=== PATIENT | female | born 1965 | race Two or more races ===

== ENCOUNTER 2025-06-18 08:04 | Inpatient (IN) | payer MEDICAID, OTHER ==
[~2025-06-18] VITALS: Ht 157.5 cm; Wt 74.9 kg
--- NOTE | 2025-06-18 08:09 | ED.PDOC ---
HPI Comments 60 y/o F, with PMHx of anxiety presents to the ED for CC of chest pain. Patient states, she has been experiencing substernal non-radiating chest pain following, a family argument at 0600 this morning (06/18/25). Patient relays, to be experiencing associated symptoms of nausea and vomiting following commencement of symptoms. Patient denies shortness of breath, cough, fever, palpitations, dizziness, or headache. No other symptoms or modifying factors are present at this time. Chief Complaint: Chest Pain Time Seen by MD: 08:00 Reviewed Notes: Nurses Notes, Medications, Allergies Allergies: Coded Allergies: Aspirin (Verified Allergy, Severe, 06/18/25) Information Source: Patient Mode of Arrival: Ambulatory Severity: Moderate Timing: Hours Duration: Since onset Prehospital treatment: None Location: Substernal Radiation: No Radiation Onset: At Rest Cardiac Risk Factors: None PE Risk Factors: None History of: None Modifying Factors: Nothing Associated Signs and Symptoms: N/V Past Medical History PAST MEDICAL HISTORY: Anxiety Surgical History: Denies all surgeries NUB CARD TENDER History: Denies all NUB CARD TENDER Hx Family History Family History: Unknown Social History Smoker: Non-Smoker Alcohol: Denies ETOH Use Drugs: Denies Drug Use Lives In: Home Constitutional: denies: chills, diaphoresis, fatigue, fever, malaise, sweats, weakness, others EENTM: denies: blurred vision, double vision, ear bleeding, ear discharge, ear drainage, ear pain, ear ringing, eye pain, eye redness, hearing loss, mouth pain, mouth swelling, nasal discharge, nose bleeding, nose congestion, nose pain, photophobia, tearing, throat pain, throat swelling, voice changes, others Respiratory: denies: cough, hemoptysis, orthopnea, SOB at rest, shortness of breath, SOB with excertion, stridor, wheezing, others Cardiovascular: reports: chest pain; denies: dizzy spells, diaphoresis, Dyspnea on exertion, edema, irregular heart beat, left arm pain, lightheadedness, palpitations, PND, syncope, others Gastrointestinal: reports: nausea, vomiting; denies: abdomen distended, abdominal pain, blood streaked bowels, constipated, diarrhea, dysphagia, difficulty swallowing, hematemesis, melena, poor appetite, poor fluid intake, rectal bleeding, rectal pain, others Genitourinary: denies: abnormal vagina bleeding, burning, dyspareunia, dysuria, flank pain, frequency, hematuria, incontinence, pain, , vagina discharge, urgency, others Neurological: denies: dizziness, fainting, headache, left sided numbness, left sided weakness, numbness, paresthesia, pre-existing deficit, right sided numbness, right sided weakness, seizure, speech problems, tingling, tremors, weakness, others Musculoskeletal: denies: back pain, gout, joint pain, joint swelling, muscle pain, muscle stiffness, neck pain, others Integumetry: denies: bruises, change in color, change in hair/nails, dryness, laceration, lesions, lumps, rash, wounds, others Allergic/Immunocompromised: denies: Difficulty Healing, Frequent Infections, Hives, Itching, others Hematologic/Lymphatic: denies: anemia, blood clots, easy bleeding, easy bruising, swollen glands, others Endocrine: denies: excessive hunger, excessive sweating, excessive thirst, excessive urination, flushing, intolerance to cold, intolerance to heat, unexplained weight gain, unexplained weight loss, others Psychiatric: denies: anxiety, bipolar disorder, depression, hopeless, panic disorder, schizophrenia, sleepless, suicidal, others All Other Systems: Reviewed and Negative Physical Exam General Appearance: Moderate Distress HEENT: Normal ENT Inspection, Pharynx Normal, TMs Normal Neck: Full Range of Motion, Non-Tender, Normal, Normal Inspection Respiratory: Chest Non-Tender, Lungs Clear, No Accessory Muscle Use, No Respiratory Distress, Normal Breath Sounds Cardiovascular: No Edema, No JVD, No Murmur, No Gallop, Normal Peripheral Pulses, Regular Rate/Rhythm Breast Exam: Deferred Gastrointestinal: No Organomegaly, Non Tender, No Pulsatile Mass, Normal Bowel Sounds, Soft Genitalia: Deferred Pelvic: Deferred Rectal: Deferred Extremities: No calf tenderness, Normal capillary refill, Normal inspection, Normal range of motion, Non-tender, No pedal edema Musculoskeletal : Apperance: Normal Neurologic: Alert Cerebellar Function: NOT DONE Reflexes: NOT DONE Skin: Dry, Normal Color, Warm Peripheral Pulses: 3+ Radial (R), 3+ Radial (L) Lymphatic: No Adenopathy EKG EKG : Pulse Rate (adult): 97 [place]: Normal Cardiac Rhythm: NSR Block: None Hypertrophy: LAE ST: Normal Was a procedure done? Was a procedure done?: No CP Differential Dx Differential Diagnosis: A-fib, A-Flutter, Angina, Anxiety / Panic Attack, Electrolyte Disorder Differential Diagnosis: Angina, Chest Wall Pain, Costochondritis X-Ray, Labs, Meds, VS Vital Signs Date Time Temp Pulse Resp B/P (MAP) Pulse Ox O2 Delivery O2 Flow Rate FiO2 06/18/25 08:29 97 06/18/25 08:15 97 06/18/25 08:06 98.3 111 19 145/77 100 98.3 Lab Test 06/18/25 08:22 Range/Units Troponin I High Sensitivity 7 </=34 ng/L Patient alert. Complaining of chest pain. EKG reviewed does not show any acute changes. Vitals stable. Answering questions. Cardiac marker within normal limits. Continues to have chest pain. Was given aspirin. Was given nitro. Explained to the family. Continue monitoring. Time of 1ST Reevaluation: 08:30 Reevaluation 1ST: Unchanged Patient Education/Counseling: Diagnosis, Treatment Family Education/Counseling: No Family Present SEPSIS Sepsis Screen Physician Orders Electrocardigram (06/18/25 08:15) Troponin-I Hs (06/18/25 09:15) Troponin-I Hs (06/18/25 11:15) Electrocardigram (06/18/25 09:15) Electrocardigram (06/18/25 11:15) Vital Signs Date Time Temp Pulse Resp B/P (MAP) Pulse Ox O2 Delivery O2 Flow Rate FiO2 06/18/25 08:29 97 06/18/25 08:15 97 06/18/25 08:06 98.3 111 19 145/77 100 98.3 Departure 1 Departure Time of Disposition: 09:32 Impression: Primary Impression: Chest pain of unknown etiology Disposition: ADMITTED INPATIENT Admit to: Med Surg Condition: Guarded Critical Care Note Critical Care Time?: No Stability Stability form required: No Heart Score Heart Score: Heart Score Response (Comments) Value History Slightly Suspicious 0 EKG Normal 0 Age 45-64 1 Risk Factors 1 or 2 risk factors 1 Troponin Normal limit 0 Total 2 I personally scribed for KASSIE GUZMAN MD ([email or web address]) on 06/18/25 at 08:09. Electronically submitted by Roxane Gatica ([email or web address]). I personally scribed for KASSIE GUZMAN MD ([email or web address]) on 06/18/25 at 08:16. Electronically submitted by Roxane Gatica ([email or web address]). I personally scribed for KASSIE GUZMAN MD ([email or web address]) on 06/18/25 at 08:29. Electronically submitted by Roxane Gatica ([email or web address]). KASSIE GUZMAN MD Jun 18, 2025 08:09
[2025-06-18 10:16] LABS: Potassium 3.7 mmol/L (3.5-5.1); Sodium 143 mmol/L (136-145)
[2025-06-18 10:17] LABS: Anion Gap 14 (5-15); Calcium 9.9 mg/dL (8.7-10.4)
[2025-06-18 10:22] LABS: BUN/Creatinine Ratio 12.7 (10.0-20.0); Blood Urea Nitrogen 10 mg/dL (9-23); Glucose 101 mg/dL (74-106)
[2025-06-18 10:27] LABS: Carbon Dioxide 20 mmol/L (20-31); Chloride 109 mmol/L (98-107)
[2025-06-18] MEDS: NITROGLYCERIN 0.4 MG SL TAB SL ONE (10:36)
[2025-06-18 10:40] LABS: Hematocrit 45.2 % (36.0-46.0); Hemoglobin 15.5 g/dL (12.2-16.2); Mean Corpuscular Hemoglobin 29.6 pg (28.0-32.0); Mean Corpuscular Volume 86.1 fL (80.0-100.0); Nucleated Red Blood Cells % 0.4 %
--- NOTE | 2025-06-18 11:25 | DVHHPRES ---
History of Present Illness Resident Creating Document: DARLEEN CHATTERJEE RESIDENT History of Present Illness This is a 60-year-old female with a history of anemia requiring transfusion- vegan diet who presented to the ER with the daughter for the evaluation of chest pain which started earlier this morning. Patient was up all night waiting for the daughter to come home, she had a disagreement and argument with the daughter this morning following which patient experienced chest pain which was substernal, pressure type, radiated to the back associated with nausea, chest pain started when she was sitting and lasted till she got nitroglycerin in the ER 3 hours later. Patient denies shortness of breath, fever chills, sweating or dizziness at this time. Past medical history history of anemia requiring transfusion-vegan diet Past surgical history: None PCP: Unknown Social history: Lives with daughter, denies smoking/drinking/drug use Patient seen and examined in ER lobby. Patient is crying, but reports there is no active chest pain. Tropes and EKG unremarkable for ST elevation. Smoke: No ALCOHOL: none Drugs: None Lives: with Family Review of Systems Allergies: Coded Allergies: Aspirin (Verified Allergy, Severe, 06/18/25) Exam Vital Signs Vital Signs Date Time Temp Pulse Resp B/P (MAP) Pulse Ox O2 Delivery O2 Flow Rate FiO2 06/18/25 10:38 98.7 107 16 135/85 (102) 98 98.7 Exam Elderly female patient sitting comfortably in a wheelchair, no acute distress General: Overweight,afebrile, palor, mucosae are moist Cardiovascular: Regular S1 and S2. No murmurs, gallops or rubs. No JVD elevation. No pedal edema Respiratory: Normal B/L air entry on room air. Clear lung sounds on auscultation Abdomen: Soft, nontender, nondistended, normoactive bowel sounds, no rebound tenderness, no organomegaly, no masses Genitourinary: Deferred MSK/skin: Mobilizes 4 limbs. Skin is dry and warm Neurological: No motor, no sensitive deficits, normal speech. Pupils are isocoric and reactive. Psych/Mental Status: A/Ox3 Labs/Xrays Labs Test 06/18/25 09:44 06/18/25 08:22 Range/Units Troponin I High Sensitivity 7 </=34 ng/L White Blood Count 4.9 4.4-10.8 10^3/uL Red Blood Count 5.25 H 4.0-5.20 10^6/uL Hemoglobin 15.5 12.2-16.2 g/dL Hematocrit 45.2 36.0-46.0 % Mean Corpuscular Volume 86.1 80.0-100.0 fL Mean Corpuscular Hemoglobin 29.6 28.0-32.0 pg Mean Corpuscular Hemoglobin Concent 34.4 32.0-36.0 g/dL Red Cell Distribution Width 13.3 11.8-14.3 % Platelet Count 209 140-450 10^3/uL Mean Platelet Volume 9.0 6.9-10.8 fL Neutrophils (%) (Auto) 64.7 37.0-80.0 % Lymphocytes (%) (Auto) 30.2 10.0-50.0 % Monocytes (%) (Auto) 3.3 0.0-12.0 % Eosinophils (%) (Auto) 0.9 0.0-7.0 % Basophils (%) (Auto) 0.9 0.0-2.0 % Neutrophils # (Auto) 3.2 1.6-8.6 10 ^3/uL Lymphocytes # (Auto) 1.5 0.4-5.4 10 ^3/uL Monocytes # (Auto) 0.2 0-1.3 10 ^3/uL Eosinophils # (Auto) 0 0-0.8 10 ^3/uL Basophils # (Auto) 0 0-0.2 10 ^3/uL Nucleated Red Blood Cells 0.4 % Sodium Level 143 136-145 mmol/L Potassium Level 3.7 3.5-5.1 mmol/L Chloride Level 109 H 98-107 mmol/L Carbon Dioxide Level 20 20-31 mmol/L Anion Gap 14 5-15 Blood Urea Nitrogen 10 9-23 mg/dL Creatinine 0.79 0.550-1.02 mg/dL Glomerular Filtration Rate Calc 86 >90 mL/min BUN/Creatinine Ratio 12.7 10.0-20.0 Serum Glucose 101 74-106 mg/dL Calcium Level 9.9 8.7-10.4 mg/dL SEPSIS Sepsis Screen Date sepsis recognized/suspect: Jun 18, 2025 Time Sepsis recognized/suspect: 08 Recent Procedure: No On Antibiotic Therapy: No Respiratory Rate >20: No Heart Rate >90: Yes Temp<36 C (96.8 F) or >38.3 C: No SBP <90 or MAP <65 mmHG: No New Acute Mental Status Change: No Is the patient on CPAP, BIPAP,: No Physician Orders Electrocardigram (06/18/25 08:15) Troponin-I Hs (06/18/25 11:15) Electrocardigram (06/18/25 09:15) Electrocardigram (06/18/25 11:15) Urinalysis (06/18/25 09:33) Admit (06/18/25 11:24) Vital Signs Date Time Temp Pulse Resp B/P (MAP) Pulse Ox O2 Delivery O2 Flow Rate FiO2 06/18/25 10:38 98.7 107 16 135/85 (102) 98 98.7 06/18/25 10:38 107 06/18/25 10:36 135/85 06/18/25 09:09 94 06/18/25 08:29 97 06/18/25 08:15 97 06/18/25 08:06 98.3 111 19 145/77 100 98.3 Laboratory Tests Test 06/18/25 08:22 White Blood Count 4.9 10^3/uL (4.4-10.8) Medications Medications Dose Ordered Sig/Cuong Route Start Time Stop Time Status Last Admin Dose Admin Nitroglycerin 0.4 mg ONCE ONCE SL 06/18/25 09:45 06/18/25 09:46 DC 06/18/25 10:36 0.4 MG Assessment/Plan Assessment/Plan Acute chest pain, rule out ACS Sinus tachycardia likely secondary to anxiety and stress Troponin WNL EKG shows tachycardia and left atrial enlargement, no ST-elevation BNP WNL Chest pain relieved by nitroglycerin Lipid panel in a.m. Aspirin and atorvastatin daily Cardiac diet Lovenox 40 mg sc daily Plan discussed with patient, daughter in ER in which all questions have been answered Goals of care discussed with the patient and her daughter for 20 minutes; full code Case discussed with Dr. Perry I was physically present for the denson portions of the service provided to patient by THE RESIDENT. I have reviewed the documentation, discussed the case with resident and agree with the resident's documentation except as noted. Also the patient's clinical case was discussed with the patient's nurse. This medical document was created using an electronic medical record system with computerized dictation system. Although this document has been carefully reviewed, there might still be some phonetic and typographical errors. These areas are purely typographical due to imperfections of the software programs, and do not reflect any compromise in the patient's medical care. Late signature. Plan discussed with: Patient, Daughter, Other (Nurse) My Orders Orders - DARLEEN CHATTERJEE Procedure Category Date Status Time Admit ADMIT 06/18/25 Transmitted 11:24 Date of Service: Jun 18, 2025 Billing Provider: JANINE PERRY MD Common Visit Codes: 65209-DFQSYDD INP/OBS CARE (HIGH) Secondary Visit Codes: 91256-[id number] CARE PLAN 30 MINUTES (20 minutes) DARLEEN CHATTERJEE Jun 18, 2025 11:25 JANINE PERRY MD Jun 20, 2025 06:03
[2025-06-18] MEDS ORDERED: ACETAMINOPHEN 500 MG TAB or CAP PO PRN (11:30)
[2025-06-18] MEDS ORDERED: MORPHINE SULFATE INJ 2 MG/ml SYRG IV PRN (11:30)
[2025-06-18 11:47] LABS: Alanine Aminotransferase 14.0 U/L (7-40); Alkaline Phosphatase 98.0 U/L (46-116); Bilirubin, Direct 0.2 mg/dL (<0.3); Bilirubin, Total 0.6 mg/dL (0.2-1.0); Magnesium 2.1 mg/dL (1.6-2.6); Total Protein 8.2 g/dL (5.7-8.2)
[2025-06-18 11:53] LABS: Albumin 5.1 g/dL (3.2-4.8)
--- NOTE | 2025-06-18 11:53 | DVH ---
CHEST RADIOGRAPH Indication: chest pain Technique: Single frontal view of the chest was obtained Comparison: None FINDINGS: Lines and Tubes: None Lungs: No focal consolidation. Pleura: No effusion. No pneumothorax. Cardiomediastinal contours: Unremarkable Bones: No acute osseous abnormality. IMPRESSION: 1. No acute cardiopulmonary disease. HS:Y
[2025-06-18 20:00] VITALS: PULSE 62
[2025-06-18] MEDS: HYDROcodone-ACET 5/325MG TAB PO PRN (20:10)
[2025-06-18 20:20] VITALS: PULSE 67; RESP 16; O2SAT 96
[2025-06-18] MEDS: ATORVASTATIN 20 MG TAB PO SCH (21:20)
[2025-06-19] VITALS (7 sets, daily range): BP systolic 114–136; BP diastolic 72–79; PULSE 63–97; RESP 17–18; TEMP 98–98.1; O2SAT 95–99
[2025-06-19 05:27] LABS: Urine Protein, UAD Negative (Negative)
[2025-06-19 05:38] LABS: Opiate Scree,Urine Neg (NEGATIVE)
[2025-06-19 05:52] LABS: Barbiturate Scree,Urine Neg (NEGATIVE); Phencyclidine Screen, Urine Neg (NEGATIVE)
[2025-06-19 05:53] LABS: Amphetamine Screen, Urine Neg (NEGATIVE); Benzodiazephine Screen, Urine Neg (NEGATIVE); Cannabinoid Screen, Urine Neg (NEGATIVE); Cocaine Screen, Urine Neg (NEGATIVE)
[2025-06-19 07:49] LABS: Alanine Aminotransferase 13 U/L (7-40); Albumin 4.6 g/dL (3.2-4.8); Alkaline Phosphatase 87 U/L (46-116); Anion Gap 12 (5-15); BUN/Creatinine Ratio 16.0 (10.0-20.0); Bilirubin, Total 0.6 mg/dL (0.2-1.0); Blood Urea Nitrogen 12 mg/dL (9-23); Calcium 9.3 mg/dL (8.7-10.4); Carbon Dioxide 26 mmol/L (20-31); Chloride 106 mmol/L (98-107); Glucose 84 mg/dL (74-106); Potassium 3.7 mmol/L (3.5-5.1); Sodium 144 mmol/L (136-145); Total Protein 7.3 g/dL (5.7-8.2)
[2025-06-19 07:55] LABS: Hematocrit 42.2 % (36.0-46.0); Hemoglobin 14.8 g/dL (12.2-16.2); Mean Corpuscular Hemoglobin 30.1 pg (28.0-32.0); Mean Corpuscular Volume 85.7 fL (80.0-100.0)
[2025-06-19 08:01] LABS: Cholesterol 169 mg/dL (< 200)
[2025-06-19 08:02] LABS: Triglycerides 62 mg/dL (< 150)
[2025-06-19 08:05] LABS: HDL Cholesterol 69 mg/dL (40-59)
[2025-06-19 08:16] LABS: Total Cells Counted 100.0 (100)
[2025-06-19] MEDS: cefTRIAXone 1GM/50ML D5W 50 ML IV ONE (11:33)
--- NOTE | 2025-06-19 12:04 | DVHSR ---
APPROVED REPORT EXAM: Two-dimensional and M-mode echocardiogram with Doppler and color Doppler. Blood Pressure: 132/74 mmHg INDICATION Chest Pain RISK FACTORS Height: 62, Weight: 160 DIMENSIONS LVDd3.8 (3.8-5.7cm)LA (2D)3.3 (1.9-4.0cm)Aortic Root3.2 (2.0-3.7cm) LVDs2.7 (2.5-4.0cm)LA (MM) (1.9-4.0cm)Aortic Cusp Exc1.6 (1.5-2.0cm) EF (%) 56.0 (55-70%)Rt. Atrium3.7 (1.9-4.0cm)Asc. Aorta cm IVSd1.1 (0.7-1.1cm)RV (D) (1.8-2.4cm) PWd1.4 (0.7-1.1cm) Mitral Valve MitralMitral Stenosis E wave0.47m/sMV Mean GR.mmHg A wave0.69m/sMV Peak GR.mmHg E/A ratio0.72D MVAcm2 DECEL [id number] 1/2 [id number] IVRTmsDop MVA2.14cm2 Aortic Valve Aortic ValveAortic Stenosis V11.11m/Sunil Mean GR.4mmHg V21.34m/Sunil Peak GR.7mmHg LVOT Diameter1.8 (1.8-2.4cm)Doppler AVA2.11cm2 Pulmonic Valve V20.90m/s Tricuspid Valve TR Velocity2.15m/s [id number] Conclusion lvef 60% mild LVH left atrium enlarged no severe valve abnormalities noted
--- NOTE | 2025-06-19 12:45 | ECG ---
[facility] Test Date: 2025-06-18 Test Time: 22:56:45 Pat Name: BIANCA MCGINNIS Department: Respiratoy Room: 0220T A Gender: F [employer]: ANASTASIYA : 1965 Requested By: REX REYES Order Number: [id number] Reading MD: Patrick Correa Measurements Intervals [place] Rate: 63 P: 17 MS: 189 QRS: -6 QRSD: 84 T: 51 QT: 436 QTc: 447 Interpretive Statements Sinus rhythm Electronically Signed On 06-19-2025 21:43:34 PDT by Patrick Correa Please click the below link to view image of tracing.
--- NOTE | 2025-06-19 13:40 | DVHPNRES ---
Progress Note Date Seen: Jun 19, 2025 Resident Creating Document: TERE DOLAN RESIDENT Medical Necessity Reason Pt with a Central, PICC or Fol: No Subjective Review of Systems This is a 60-year-old female with a history of anemia requiring transfusion- vegan diet who presented to the ER with the daughter for the evaluation of chest pain which started earlier this morning. Patient was up all night waiting for the daughter to come home, she had a disagreement and argument with the daughter this morning following which patient experienced chest pain which was substernal, pressure type, radiated to the back, and right shoulder associated with nausea, chest pain started when she was sitting and lasted till she got nitroglycerin in the ER 3 hours later. Patient denies shortness of breath, fever chills, sweating or dizziness at this time. Patient seen at bedside. She is alert x3, comfortable, she complains of dizziness when getting up and nurse stated that she fell forward when trying to get up in the morning. She complains of 1/10 pressure-like chest pain, which increases when breathing, has a right headache since yesterday. Nurse reported low heart rate in the 30s overnight and did a repeat EKG which was normal. Pressure in left arm is 130/74, right arm 130/ 81. Patient is very emotional and is crying, when asked about suicide risk she had a prior suicide attempt, and still has ideation of self-harm, for which telepsych is consulted. Sitter is at bedside. Urinalysis shows positive signs of UTI. Constitutional: Denies weight loss, fever and chills. HEENT: Denies changes in vision and hearing. Respiratory: Denies shortness of breath and cough Cardiovascular: Denies chest discomfort or palpitations GI: Mild abdominal distention, reports improvement on abdominal discomfort. : Denies dysuria and urinary frequency. Musculoskeletal: Denies myalgias and joint pain Skin: Denies rash and pruritus. Neurological: Has dizziness, mild headache Objective vital signs Vital Sign Date Time Temp Pulse Resp B/P (MAP) Pulse Ox O2 Delivery O2 Flow Rate FiO2 06/19/25 08:57 98.1 82 17 132/74 (93) 97 98.1 06/19/25 08:00 Room Air* 0 21 Total Intake and Output 06/18/25 06/18/25 06/19/25 15:00 23:00 07:00 Intake Total 700 ml Output Total 1 ml Balance 699 ml medications Current Medications Medications Dose Ordered Sig/Cuong Route Start Time Stop Time Status Last Admin Dose Admin Acetaminophen 500 mg Q4HPRN PRN PO 06/18/25 11:30 Acetaminophen/ Hydrocodone Bitart 1 tab Q4HPRN PRN PO 06/18/25 11:30 06/18/25 20:10 1 TAB Morphine Sulfate 1 mg Q4HPRN PRN IV 06/18/25 11:30 Aspirin 81 mg DAILY PO 06/19/25 10:00 Hold Atorvastatin Calcium 40 mg HS PO 06/18/25 22:00 06/18/25 21:20 40 MG Ceftriaxone Sodium 50 ml @ 100 mls/hr DAILY@09 IV 06/20/25 09:00 Examination General: Patient alert and oriented in person, place and time. Patient following commands. Depressed mood HEENT: Normocephalic, atraumatic, moist mucous membranes Respiratory/pulmonary: Clear lungs bilaterally, vesicular murmurs present in almost all lung landin, no associated crackles or wheezes. Cardiovascular: Mild chest tenderness Abdomen: Abdomen nondistended, there is no pain to palpation in any of the abdominal quadrants, no palpable masses. Extremities: There is no peripheral edema present at the lower extremities. Peripheral Pulses: 3+ Radial (R). 3+ Radial (L). 3+ Dorsalis pedis (R). 3+ Dorsalis pedis(L) Skin: No rashes or pruritus, there is no sacral edema present at this time. Neurological: Intact cranial nerves with no focal neurologic deficits, laboratory and microbiology Laboratory Tests 06/19/25 06:25 Test 06/19/25 06:25 Range/Units Serum Glucose 84 74-106 mg/dL Problem List/Assessment/Plan Problem List/Assessment/Plan #Acute chest pain, rule out ACS #Sinus tachycardia likely secondary to anxiety and stress -Troponin WNL -EKG shows tachycardia and left atrial enlargement, no ST-elevation -BNP WNL -Chest pain relieved by nitroglycerin - ASCVD score is 4.1% -Echo shows lvef 60%, mild LVH, left atrium enlarged -Aspirin and atorvastatin daily # acute complicated UTI - urinalysis shows positive signs of UTI - IV ceftriaxone given # acute suicidal ideation - past suicide attempt - telepsych consulted Cardiac diet DVT prophylaxis: Lovenox 40 mg sc daily PPI prophylaxis: Not indicated Goals of care discussed with the patient for 29 minutes: Case discussed with Dr. Magallanes Plan discussed with: Patient TERE DOLAN RESIDENT Jun 19, 2025 13:40
--- NOTE | 2025-06-19 19:52 | DVHINCON2 ---
Date of Service if different f: Jun 19, 2025 Time of Service: 17:00 Consultation (LEJUNIOR) Labs Laboratory Tests Test 06/18/25 08:22 06/18/25 11:35 06/19/25 05:00 06/19/25 06:25 Eosinophils (%) (Auto) 0.9 % (0.0-7.0) Eosinophils # (Auto) 0 10 ^3/uL (0-0.8) Basophils # (Auto) 0 10 ^3/uL (0-0.2) Nucleated Red Blood Cells 0.4 % Magnesium Level 2.1 mg/dL (1.6-2.6) Direct Bilirubin 0.2 mg/dL (<0.3) B-Type Natriuretic Peptide 5.61 pg/mL (0-100) Thyroid Stimulating Hormone (TSH) 1.11 uIU/mL (0.55-4.78) Troponin I High Sensitivity 5 ng/L (</=34) Urine Color Yellow (Yellow) Urine Clarity Clear (Clear) Urine pH 6.0 (5.0-9.0) Urine Specific [place] 1.016 (1.001-1.035) Urine Protein Negative (Negative) Urine Ketones Trace (Negative) Urine Blood Negative /uL (Negative) Urine Nitrite Negative (Negative) Urine Bilirubin Negative (Negative) Urine Urobilinogen Normal mg/dL (Negative) Urine Leukocyte Esterase 2+ /uL (Negative) Urine RBC 1 /hpf (0 - 4) Urine Microscopic WBC 12 /HPF (0-5) Urine Squamous Epithelial Cells Few /hpf (<5) Urine Bacteria None seen /hpf (None Seen) Urine Mucus Few (None Seen) Urine Glucose Normal mg/dL (Normal) Urine Opiates Screen Neg (NEGATIVE) Urine Fentanyl Screen Neg (NEGATIVE) Urine Barbiturates Screen Neg (NEGATIVE) Urine Phencyclidine Screen Neg (NEGATIVE) Urine Amphetamines Screen Neg (NEGATIVE) Urine Benzodiazepines Screen Neg (NEGATIVE) Urine Cocaine Screen Neg (NEGATIVE) Urine Cannabinoids Screen Neg (NEGATIVE) White Blood Count 4.2 10^3/uL (4.4-10.8) Red Blood Count 4.92 10^6/uL (4.0-5.20) Hemoglobin 14.8 g/dL (12.2-16.2) Hematocrit 42.2 % (36.0-46.0) Mean Corpuscular Volume 85.7 fL (80.0-100.0) Mean Corpuscular Hemoglobin 30.1 pg (28.0-32.0) Mean Corpuscular Hemoglobin Concent 35.1 g/dL (32.0-36.0) Red Cell Distribution Width 13.1 % (11.8-14.3) Platelet Count 195 10^3/uL (140-450) Mean Platelet Volume 8.6 fL (6.9-10.8) Neutrophils (%) (Auto) % (37.0-80.0) Lymphocytes (%) (Auto) % (10.0-50.0) Monocytes (%) (Auto) % (0.0-12.0) Basophils (%) (Auto) % (0.0-2.0) Neutrophils # (Auto) 10 ^3/uL (1.6-8.6) Lymphocytes # (Auto) 10 ^3/uL (0.4-5.4) Monocytes # (Auto) 10 ^3/uL (0-1.3) Differential Total Cells Counted 100.0 (100) Neutrophils % (Manual) 37 (37.0-80.0) Band Neutrophils % (Manual) 0 Lymphocytes % (Manual) 62 (10.0-50.0) Monocytes % (Manual) 0 (0-12) Eosinophils % (Manual) 1 (0-7) Basophils % (Manual) 0 (0.0-2.0) Metamyelocytes % (manual) 0 Myelocytes % (Manual) 0 Promyelocytes % (Manual) 0 Blast Cells % (Manual) 0 Reactive Lymphocytes 0 Platelet Estimate Adequate Sodium Level 144 mmol/L (136-145) Potassium Level 3.7 mmol/L (3.5-5.1) Chloride Level 106 mmol/L (98-107) Carbon Dioxide Level 26 mmol/L (20-31) Anion Gap 12 (5-15) Blood Urea Nitrogen 12 mg/dL (9-23) Creatinine 0.75 mg/dL (0.550-1.02) Glomerular Filtration Rate Calc 91 mL/min (>90) BUN/Creatinine Ratio 16.0 (10.0-20.0) Serum Glucose 84 mg/dL (74-106) Calcium Level 9.3 mg/dL (8.7-10.4) Total Bilirubin 0.6 mg/dL (0.2-1.0) Aspartate Amino Transf (AST/SGOT) 30 U/L (13-40) Alanine Aminotransferase (ALT/SGPT) 13 U/L (7-40) Alkaline Phosphatase 87 U/L (46-116) Total Protein 7.3 g/dL (5.7-8.2) Albumin 4.6 g/dL (3.2-4.8) Triglycerides Level 62 mg/dL (< 150) Cholesterol Level 169 mg/dL (< 200) LDL Cholesterol 91 mg/dL (< 100) HDL Cholesterol 69 mg/dL (40-59) Vitals Vital Signs Date Time Temp Pulse Resp B/P (MAP) Pulse Ox O2 Delivery O2 Flow Rate FiO2 06/19/25 17:19 98.0 85 17 136/76 (96) 97 98.0 06/19/25 08:00 Room Air* 0 21 Current medications Current Medications Medications Dose Ordered Sig/Cuong Route Start Time Stop Time Status Last Admin Dose Admin Acetaminophen 500 mg Q4HPRN PRN PO 06/18/25 11:30 Acetaminophen/ Hydrocodone Bitart 1 tab Q4HPRN PRN PO 06/18/25 11:30 06/18/25 20:10 1 TAB Morphine Sulfate 1 mg Q4HPRN PRN IV 06/18/25 11:30 Aspirin 81 mg DAILY PO 06/19/25 10:00 Hold Atorvastatin Calcium 40 mg HS PO 06/18/25 22:00 06/18/25 21:20 40 MG Ceftriaxone Sodium 50 ml @ 100 mls/hr DAILY@09 IV 06/20/25 09:00 PSYCHIATRY CONSULTATION INITIAL EVALUATION REASON FOR CONSULT: SI HPI: 60yo W on MedSurg unit seen on tele after reporting SI. On evaluation, pt is able to give her name, date, location and reason for presenting. Pt says she is there after having an anxiety attack that made it feel like pressure on her heart. Pt says she was asked if she ever wanted to hurt herself, and she said yes. She also reported history of suicide attempt a year ago. Pt reports ongoing SI. Says her children dont need her. She does not want to be a burden to her daughter. She thinks they would be better off not having to worry about her. Pt told her daughter she wants to leave, that she is tired. Pt has been having this way a couple of years. Pt denies any intention to try to harm herself in the hospital. She also does not think she will harm herself if discharged. In terms of symptoms, pt sleeps fairly, but will rise early at 3AM with various thoughts. She will try to calm herself. Her appetite is impaired. She will have just one meal then drink tea. Her energy and concentration are good. Pt reports guilt. Pt denies current or prior symptoms of elevated mood or psychosis. Pt notes she has an autistic son. 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 PSYCHIATRIC HISTORY: DIAGNOSIS: No formal diagnoses. Has been depressed in the past. ADMISSIONS: One admission at 18yo after averted suicide attempt. MEDICATION TRIALS: None prior OUTPATIENT CARE: None THERAPY: None prior SI/SELF-INJURY/SUICIDE ATTEMPT: At 18yo, tried to cut herself with a blade. A year ago, after her father passed, pt tried to kill herself by turning on the ignition while the car was in the garage. Pt interrupted by her neighbor at that time. SUBSTANCE USE: Denies RELEVANT MEDICAL HISTORY: Denies SOCIAL HISTORY: Lives with her daughter and son in [place]. No grandchildren. ALLERGIES: Aspirin MENTAL STATUS EXAMINATION: 60-year-old woman seen via telehealth on the [facility] unit. She is alert, calm, cooperative, and pleasant throughout the interview. Speech is slowed but goal- directed. Affect is constricted and dysphoric, mood is reported as depressed; she is intermittently tearful. Thought process is linear and organized. She denies current intent or plan for self-harm but endorses passive suicidal ideation. There is no evidence of hallucinations, delusions, or richi. Insight is fair, judgment is intact, and cognition grossly intact. She is oriented to person, place, time, and situation. DIFFERENTIAL DIAGNOSIS: Major Depressive Disorder, Recurrent, Moderate to Severe (F33.1 / F33.2) Persistent Depressive Disorder (Dysthymia) (F34.1) Generalized Anxiety Disorder (F41.1) Adjustment Disorder with Depressed Mood and Anxiety ASSESSMENT: This is a 60-year-old woman with a distant history of suicide attempt and recent psychosocial stressors, presenting with passive suicidal ideation in the context of chronic dysphoria and anxiety. She expresses longstanding emotional fatigue, feelings of being a burden, and a desire to leave, but denies active suicidal intent or plan. She is cooperative, engaged, and able to identify protective factors, including her role as caregiver for her autistic son. Her mental status exam shows slowed speech, dysphoric affect, and tearfulness, but she is oriented, calm, and coherent. There is no evidence of acute psychosis, richi, or cognitive impairment. She has never engaged in mental health treatment, and the current episode appears to reflect untreated major depressive disorder, possibly recurrent, without psychotic features. At this time, the patient does not meet criteria for involuntary hold (5150) as she is not actively suicidal, not gravely disabled, and does not pose a danger to herself or others. Her presentation is appropriate for voluntary outpatient management with initiation of pharmacologic treatment. Risk Assessment Suicide Risk: Ideation: Present (passive) Plan: Denied Intent: Denied Means: No access to firearms; not currently acting on thoughts History: Remote attempt at 18, aborted attempt a year ago Current Risk Level: Low Acute Risk, Moderate Chronic Risk Protective Factors: Insight into emotional state Primary caregiver for son Open to intervention and engaging in treatment Supportive family present (daughter) Contracts for safety Aggravating Factors: Recent psychological distress Social role strain (perceived burden) No prior psychiatric treatment Limited coping strategies RECOMMENDATIONS: 1. Legal: 5150 not indicated at this time due to lack of current plan or intent and no evidence of grave disability. Continue 1:1 sitter until patient less dysphoric, denies SI. 2. Disposition: - Medically stabilize and refer to outpatient psychiatry for medication michelle gement and therapy. - Consider social work consult to explore community mental health resources and caregiver support. 3. Medications: - Consider Mirtazapine 15 mg PO QHS (Helpful for appetite stimulation, railroad firer awakening, mood, anxiety) 4. Other: - Encourage pt to engage in psychotherapy, especially with bereavement or caregiver focus. - Discuss plan and safety with pt and her daughter prior to discharge. Provide crisis information. LLOYD MARTINEZ MD Jun 19, 2025 19:52
[2025-06-20] VITALS (10 sets, daily range): BP systolic 110–135; BP diastolic 69–85; PULSE 68–97; RESP 17–18; TEMP 97.7–98.4; O2SAT 95–100
[2025-06-20] MEDS: MIRTAZAPINE 30 MG TAB PO ONE (05:12)
[2025-06-20] MEDS: cefTRIAXone 1GM/50ML D5W 50 ML IV SCH (09:52)
[2025-06-20 10:33] LABS: Hematocrit 43.8 % (36.0-46.0); Hemoglobin 15.1 g/dL (12.2-16.2); Mean Corpuscular Hemoglobin 30.0 pg (28.0-32.0); Mean Corpuscular Volume 86.8 fL (80.0-100.0); Nucleated Red Blood Cells % 0.2 %
[2025-06-20 10:36] LABS: Calcium 9.7 mg/dL (8.7-10.4); Chloride 106 mmol/L (98-107); Potassium 4.0 mmol/L (3.5-5.1); Sodium 143 mmol/L (136-145)
[2025-06-20 10:37] LABS: Anion Gap 10 (5-15); Carbon Dioxide 27 mmol/L (20-31)
[2025-06-20 10:42] LABS: BUN/Creatinine Ratio 13.8 (10.0-20.0); Blood Urea Nitrogen 11 mg/dL (9-23); Glucose 105 mg/dL (74-106)
[2025-06-20] MEDS ORDERED: MIRT-94 OR (13:27)
[2025-06-20] MEDS ORDERED: ATOR20TA50 PO (13:27)
--- NOTE | 2025-06-20 14:17 | DVHDSRES ---
Discharge Summary Date of Admission Resident Creating Document: TERE DOLAN Jun 18, 2025 at 11:24 Date of Discharge: Jun 20, 2025 Admitting Diagnosis #Acute chest pain, rule out ACS Labs/Diagnostic Data: Laboratory Results Test 06/20/25 09:49 06/19/25 06:25 06/19/25 05:00 06/18/25 11:35 White Blood Count 4.2 10^3/uL (4.4-10.8) Red Blood Count 5.04 10^6/uL (4.0-5.20) Hemoglobin 15.1 g/dL (12.2-16.2) Hematocrit 43.8 % (36.0-46.0) Mean Corpuscular Volume 86.8 fL (80.0-100.0) Mean Corpuscular Hemoglobin 30.0 pg (28.0-32.0) Mean Corpuscular Hemoglobin Concent 34.5 g/dL (32.0-36.0) Red Cell Distribution Width 13.6 % (11.8-14.3) Platelet Count 197 10^3/uL (140-450) Mean Platelet Volume 8.5 fL (6.9-10.8) Neutrophils (%) (Auto) 64.2 % (37.0-80.0) Lymphocytes (%) (Auto) 29.4 % (10.0-50.0) Monocytes (%) (Auto) 3.2 % (0.0-12.0) Eosinophils (%) (Auto) 2.3 % (0.0-7.0) Basophils (%) (Auto) 0.9 % (0.0-2.0) Neutrophils # (Auto) 2.7 10 ^3/uL (1.6-8.6) Lymphocytes # (Auto) 1.2 10 ^3/uL (0.4-5.4) Monocytes # (Auto) 0.1 10 ^3/uL (0-1.3) Eosinophils # (Auto) 0.1 10 ^3/uL (0-0.8) Basophils # (Auto) 0 10 ^3/uL (0-0.2) Nucleated Red Blood Cells 0.2 % Sodium Level 143 mmol/L (136-145) Potassium Level 4.0 mmol/L (3.5-5.1) Chloride Level 106 mmol/L (98-107) Carbon Dioxide Level 27 mmol/L (20-31) Anion Gap 10 (5-15) Blood Urea Nitrogen 11 mg/dL (9-23) Creatinine 0.80 mg/dL (0.550-1.02) Glomerular Filtration Rate Calc 84 mL/min (>90) BUN/Creatinine Ratio 13.8 (10.0-20.0) Serum Glucose 105 mg/dL (74-106) Calcium Level 9.7 mg/dL (8.7-10.4) Differential Total Cells Counted 100.0 (100) Neutrophils % (Manual) 37 (37.0-80.0) Band Neutrophils % (Manual) 0 Lymphocytes % (Manual) 62 (10.0-50.0) Monocytes % (Manual) 0 (0-12) Eosinophils % (Manual) 1 (0-7) Basophils % (Manual) 0 (0.0-2.0) Metamyelocytes % (manual) 0 Myelocytes % (Manual) 0 Promyelocytes % (Manual) 0 Blast Cells % (Manual) 0 Reactive Lymphocytes 0 Platelet Estimate Adequate Total Bilirubin 0.6 mg/dL (0.2-1.0) Aspartate Amino Transferase (AST) 30 U/L (13-40) Alanine Aminotransferase (ALT) 13 U/L (7-40) Alkaline Phosphatase 87 U/L (46-116) Total Protein 7.3 g/dL (5.7-8.2) Albumin 4.6 g/dL (3.2-4.8) Triglycerides Level 62 mg/dL (< 150) Cholesterol Level 169 mg/dL (< 200) LDL Cholesterol 91 mg/dL (< 100) HDL Cholesterol 69 mg/dL (40-59) Urine Color Yellow (Yellow) Urine Clarity Clear (Clear) Urine pH 6.0 (5.0-9.0) Urine Specific [place] 1.016 (1.001-1.035) Urine Protein Negative (Negative) Urine Ketones Trace (Negative) Urine Blood Negative /uL (Negative) Urine Nitrite Negative (Negative) Urine Bilirubin Negative (Negative) Urine Urobilinogen Normal mg/dL (Negative) Urine Leukocyte Esterase 2+ /uL (Negative) Urine RBC 1 /hpf (0 - 4) Urine Microscopic WBC 12 /HPF (0-5) Urine Squamous Epithelial Cells Few /hpf (<5) Urine Bacteria None seen /hpf (None Seen) Urine Mucus Few (None Seen) Urine Glucose Normal mg/dL (Normal) Urine Opiates Screen Neg (NEGATIVE) Urine Fentanyl Screen Neg (NEGATIVE) Urine Barbiturates Screen Neg (NEGATIVE) Urine Phencyclidine Screen Neg (NEGATIVE) Urine Amphetamines Screen Neg (NEGATIVE) Urine Benzodiazepines Screen Neg (NEGATIVE) Urine Cocaine Screen Neg (NEGATIVE) Urine Cannabinoids Screen Neg (NEGATIVE) Troponin I High Sensitivity 5 ng/L (</=34) Test 06/18/25 08:22 Magnesium Level 2.1 mg/dL (1.6-2.6) Direct Bilirubin 0.2 mg/dL (<0.3) B-Type Natriuretic Peptide 5.61 pg/mL (0-100) Thyroid Stimulating Hormone (TSH) 1.11 uIU/mL (0.55-4.78) Other Laboratory Tests 06/20/25 09:49 Brief Hx & Hospital Course: This is a 60-year-old female with a history of anemia requiring transfusion- vegan diet who presented to the ER with the daughter for the evaluation of chest pain which started earlier this morning. Patient was up all night waiting for the daughter to come home, she had a disagreement and argument with the daughter this morning following which patient experienced chest pain which was substernal, pressure type, radiated to the back, and right shoulder associated with nausea, chest pain started when she was sitting and lasted till she got nitroglycerin in the ER 3 hours later. Patient denies shortness of breath, fever chills, sweating or dizziness at this time. brief hospital course: Patient was admitted to [facility] from for treatment of acute chest pain for which ACS which was ruled out. and sinus tachycardia likely secondary to anxiety and stress for which troponins were negative, EKG shows tachycardia and left atrial enlargement, no ST elevation, BNP was normal, her chest pain was relieved by nitroglycerin, ASCVD score was 4.1%. echo was done and showed LVEF of 60%, mild LVH, left atrium enlargement. aspirin and atorvastatin were given daily. patient does not need atorvastatin as ASCVD score is less than 7%. for her acute complicated UTI for which urinalysis showed positive signs of UTI IV ceftriaxone was given. patient had suicide ideation for which telepsych as onsulted because she had a past suicide attempt. psychiatrist diagnosed the patient with major depressive disorder, recurrent, moderate to severe, persistent depressive disorder, generalized anxiety disorder, adjustment disorder with depressed mood and anxiety. psychiatrist stated that patient does not meet criteria for involuntary hold (5150) as she is not actively suicidal, not gravely disabled, and does not pose a danger to herself or others. Her presentation is appropriate for voluntary outpatient management with initiation of pharmacologic treatment. patient was stable for discharge, and communicated understanding of her discharge plan. She does not report any chest pain and reported feeling better than when she came in and is willing to follow-up with psychiatry and discharge Clinic in 1-2 weeks. General: Patient alert and oriented in person, place and time. Patient following commands. Depressed mood HEENT: Normocephalic, atraumatic, moist mucous membranes Respiratory/pulmonary: Clear lungs bilaterally, vesicular murmurs present in almost all lung landin, no associated crackles or wheezes. Cardiovascular: Mild chest tenderness Abdomen: Abdomen nondistended, there is no pain to palpation in any of the abdominal quadrants, no palpable masses. Extremities: There is no peripheral edema present at the lower extremities. Peripheral Pulses: 3+ Radial (R). 3+ Radial (L). 3+ Dorsalis pedis (R). 3+ Dorsalis pedis(L) Skin: No rashes or pruritus, there is no sacral edema present at this time. Neurological: Intact cranial nerves with no focal neurologic deficits, Discharge instructions: Patient is to take mirtazapine 30 mg for 30 days Patient is to take dash diet, cardiac diet Follow-up with psychiatrist outpatient, discharge Clinic in 1 week Operations or Procedures ORDERING PHYSICIAN: DARLEEN CHATTERJEE RESIDENT PROCEDURE(s): CXR1 - CHEST XRAY 1 VIEW REASON: chest pain ORDER NUMBER(s): [id number], ACCESSION NUMBER(s): [id number] CHEST RADIOGRAPH Indication: chest pain Technique: Single frontal view of the chest was obtained Comparison: None FINDINGS: Lines and Tubes: None Lungs: No focal consolidation. Pleura: No effusion. No pneumothorax. Cardiomediastinal contours: Unremarkable Bones: No acute osseous abnormality. IMPRESSION: 1. No acute cardiopulmonary disease. HS:Y Condition at Discharge: Stable Final Diagnosis/Problems List #Chest pain, ruled out ACS. #Sinus tachycardia likely secondary to anxiety and stress # acute complicated UTI # acute suicidal ideation Discharge Disposition: Home Discharge Instruct/Medications Diet: Consistent carbohydrate, Cardiac 2g Na,low cholest Activity: No Restrictions, As Tolerated Follow Up/Referral: follow up with discharge clinic in 1 week Follow up with PCP in 1-2 weeks Medications: As per EMR Scheduled Mirtazapine (Remeron), 15 MG OR DAILY Discharge Statement: "Patient was advised to return to the ER or call 911 if any headaches, dizziness, shortness of breath, chest pain, abdominal pain, bleeding, fevers, or worsening of medical condition. Patient was counseled about treatment plan, medications, possible side effects, patientverbalized understanding. All questions were answered to the best of my ability. This discharge took greater then 30 minutes in planning, reviewing documentation, counseling the patient, and discussing with other team members." ASSESSMENT ASSESSMENT Assessment Chest pain, ruled out ACS. TERE DOLAN RESIDENT Jun 20, 2025 14:17
[2025-06-20 16:22] LABS: Urine Protein, UAD Negative (Negative)
--- NOTE | 2025-06-20 16:37 | DVHPNRES ---
Progress Note Date Seen: Jun 20, 2025 Resident Creating Document: TERE DOLAN RESIDENT Medical Necessity Reason Pt with a Central, PICC or Fol: No Subjective Review of Systems This is a 60-year-old female with a history of anemia requiring transfusion- vegan diet who presented to the ER with the daughter for the evaluation of chest pain which started earlier this morning. Patient was up all night waiting for the daughter to come home, she had a disagreement and argument with the daughter this morning following which patient experienced chest pain which was substernal, pressure type, radiated to the back, and right shoulder associated with nausea, chest pain started when she was sitting and lasted till she got nitroglycerin in the ER 3 hours later. Patient denies shortness of breath, fever chills, sweating or dizziness at this time. 06/19/25 Patient seen at bedside. She is alert x3, comfortable, she complains of dizziness when getting up and nurse stated that she fell forward when trying to get up in the morning. She complains of 1/10 pressure-like chest pain, which increases when breathing, has a right headache since yesterday. Nurse reported low heart rate in the 30s overnight and did a repeat EKG which was normal. Pressure in left arm is 130/74, right arm 130/ 81. Patient is very emotional and is crying, when asked about suicide risk she had a prior suicide attempt, and still has ideation of self-harm, for which telepsych is consulted. Sitter is at bedside. Urinalysis shows positive signs of UTI. 06/20/25 Patient seen at bedside. She is alert x3, comfortable, she complains of dizziness when getting up and feels like the room is spinning. She complained of no chest pain, shortness of breath, and denies any nausea, vomiting, diarrhea, constipation, headaches. consultation with psychiatrist was done and they stated the patient does not meet criteria for involuntary hold (5150) as she is not actively suicidal, not gravely disabled, and does not pose a danger to herself or others. Her presentation is appropriate for voluntary outpatient management with initiation of pharmacologic treatment. She feels weeks today, and wanted a week and diet for which daily multivitamin was given and diet consult was placed. consultation for PT eval was placed. rest of ROS is negative. Objective vital signs Vital Sign Date Time Temp Pulse Resp B/P (MAP) Pulse Ox O2 Delivery O2 Flow Rate FiO2 06/20/25 13:45 98.2 70 18 96 06/20/25 05:00 112/75 (87) 06/19/25 20:00 Room Air* 0 21 Total Intake and Output 06/19/25 06/19/25 06/20/25 15:00 23:00 07:00 Intake Total 900 ml 500 ml Balance 900 ml 500 ml medications Current Medications Medications Dose Ordered Sig/Cuong Route Start Time Stop Time Status Last Admin Dose Admin Acetaminophen 500 mg Q4HPRN PRN PO 06/18/25 11:30 Acetaminophen/ Hydrocodone Bitart 1 tab Q4HPRN PRN PO 06/18/25 11:30 06/18/25 20:10 1 TAB Morphine Sulfate 1 mg Q4HPRN PRN IV 06/18/25 11:30 Aspirin 81 mg DAILY PO 06/19/25 10:00 Hold Atorvastatin Calcium 40 mg HS PO 06/18/25 22:00 06/19/25 21:50 40 MG Ceftriaxone Sodium 50 ml @ 100 mls/hr DAILY@09 IV 06/20/25 09:00 06/20/25 09:52 100 MLS/HR Mirtazapine 15 mg HS PO 06/20/25 22:00 Multivitamins 1 tab DAILY PO 06/21/25 10:00 UNV Examination General: Patient alert and oriented in person, place and time. Patient following commands. HEENT: Normocephalic, atraumatic, moist mucous membranes Respiratory/pulmonary: Clear lungs bilaterally, vesicular murmurs present in almost all lung landin, no associated crackles or wheezes. Cardiovascular: Normal heart sounds S1 and S2 with no associated murmurs Abdomen: Abdomen nondistended, there is no pain to palpation in any of the abdominal quadrants, no palpable masses. Extremities: There is no peripheral edema present at the lower extremities. Peripheral Pulses: 3+ Radial (R). 3+ Radial (L). 3+ Dorsalis pedis (R). 3+ Dorsalis pedis(L) Skin: No rashes or pruritus, there is no sacral edema present at this time. Neurological: Intact cranial nerves with no focal neurologic deficits laboratory and microbiology Laboratory Tests 06/20/25 09:49 Test 06/20/25 09:49 Range/Units Serum Glucose 105 74-106 mg/dL Microbiology Date/Time Source Procedure Growth Status 06/19/25 05:00 Voided Urine Urine Culture - Preliminary Resulted Problem List/Assessment/Plan Problem List/Assessment/Plan #Acute chest pain, rule out ACS #Sinus tachycardia likely secondary to anxiety and stress -Troponin WNL -EKG shows tachycardia and left atrial enlargement, no ST-elevation -BNP WNL -Chest pain relieved by nitroglycerin - ASCVD score is 4.1% -Echo shows lvef 60%, mild LVH, left atrium enlarged -Aspirin daily - atorvastatin stopped # acute complicated UTI - urinalysis shows positive signs of UTI - IV ceftriaxone given # acute suicidal ideation - past suicide attempt - telepsych consulted and stated they stated the patient does not meet criteria for involuntary hold (5150) as she is not actively suicidal, not gravely disabled, and does not pose a danger to herself or others. Her presentation is appropriate for voluntary outpatient management with initiation of pharmacologic treatment. - Mirtazipine Cardiac diet DVT prophylaxis: Lovenox 40 mg sc daily PPI prophylaxis: Not indicated Goals of care discussed with the patient for 29 minutes: full code Case discussed with Dr. Magallanes Plan discussed with: Patient My Orders My Orders Orders - TERE DOLAN Procedure Category Date Status Time Communication Order ORDERS 06/20/25 Transmitted 16:11 Vitamin B12 LAB 06/20/25 In Process 16:11 Folate (Folic Acid) LAB 06/20/25 In Process 16:11 * Dietary Consult CONS 06/20/25 Transmitted 16:11 Pt Request For Service PT 06/20/25 Logged 16:11 Multiple Vitamin PHA 06/20/25 In Process Tablet (Mvi Tab) 16:30 Multiple Vitamin PHA 06/21/25 Logged Tablet (Mvi Tab) 10:00 TERE DOLAN Jun 20, 2025 16:37
[2025-06-20] MEDS: MULTIPLE VITAMIN TAB PO ONE (18:05)
[2025-06-20] MEDS: MIRTAZAPINE 30 MG TAB PO SCH (21:26)
[2025-06-21 05:00] VITALS: BP 102/68; PULSE 78; RESP 17; TEMP 97.7; O2SAT 99
[2025-06-21 08:00] VITALS: PULSE 77; PULSE 85; RESP 19; O2SAT 98
[2025-06-21 08:30] VITALS: BP_SYST 117; BP_SYST 120; BP_SYST 122; BP_DIAS 69; BP_DIAS 77; BP_DIAS 79; PULSE 85; PULSE 92; RESP 19; TEMP 97.4; O2SAT 98
[2025-06-21] MEDS: MULTIPLE VITAMIN TAB PO SCH (10:00)
--- NOTE | 2025-06-21 12:03 | DVH ---
Procedure: CT CHEST WITHOUT CONTRAST Reason for study/Clinical History: chest pain Comparison Study: XY CHEST XRAY 1 VIEW on DOS: 06/18/25 TECHNIQUE: Multidetector CT of the chest was performed from the lung apices to the upper abdomen with out the use of intravenous contract. Axial, coronal and sagittal multiplanar reformats were performed . Radiation Dose Information: CT Dose: CTDI volume is 6.25 mGy. Dose-length product is 2.54 mGy*cm The dose indicators for CT are the volume Computed Tomography (CT) Dose Index (CTDIvol) and the Dose Length Product (DLP), and are measured in units of mGy and mGy-cm, respectively. These indicators are not patient dose, but values generated from the CT scanner acquisition factors. The report includes radiation exposure data for exposures received during this examination. FINDINGS: Lower neck: Unremarkable. Lungs: No focal consolidation. No suspicious pulmonary nodule. Heart/Vascular Structures: Normal heart size. No pericardial effusion. Lymph Nodes: No adenopathy Pleura: No pleural effusion or significant pneumothorax. Musculoskeletal: No acute osseous abnormality. Soft tissues: Normal. Upper abdomen: Limited portions of the upper abdomen are unremarkable. IMPRESSION: No acute intrathoracic abnormality. Radiation optimization: All CT scans at this facility use at least one of these dose optimization julien hniques: automated exposure control mA and/or kV adjustment per patient size (includes targeted exam s where dose is matched to clinical indication) or iterative reconstruction.
[2025-06-21 12:30] VITALS: BP 122/76; PULSE 64; RESP 18; TEMP 98.3; O2SAT 100
--- NOTE | 2025-06-21 12:52 | ECG ---
[facility] Test Date: 2025-06-18 Test Time: 08:15:49 Pat Name: BIANAC MCGINNIS Department: ER Room: 0220T A Gender: F Community Relations Coordinator: ADALID : 1965 Requested By: KASSIE GUZMAN Order Number: [id number] Reading MD: Patrick Correa Measurements Intervals [place] Rate: 97 P: 52 MD: 191 QRS: 16 QRSD: 88 T: 32 QT: 341 QTc: 433 Interpretive Statements Sinus rhythm Ventricular premature complex Left atrial enlargement Low voltage, precordial leads Electronically Signed On 06-26-2025 17:15:01 PDT by Patrick Correa Please click the below link to view image of tracing.
[2025-06-21 17:00] VITALS: BP 140/79; PULSE 81; RESP 18; TEMP 97.9; O2SAT 98
--- NOTE | 2025-06-21 18:42 | DVHDSRES ---
Discharge Summary Date of Admission Resident Creating Document: TERE DOLAN Jun 18, 2025 at 11:24 Date of Discharge: Jun 20, 2025 Admitting Diagnosis #Chest pain, ruled out ACS. Labs/Diagnostic Data: Laboratory Results Test 06/20/25 09:49 06/20/25 06:30 06/19/25 06:25 06/19/25 05:00 White Blood Count 4.2 10^3/uL (4.4-10.8) Red Blood Count 5.04 10^6/uL (4.0-5.20) Hemoglobin 15.1 g/dL (12.2-16.2) Hematocrit 43.8 % (36.0-46.0) Mean Corpuscular Volume 86.8 fL (80.0-100.0) Mean Corpuscular Hemoglobin 30.0 pg (28.0-32.0) Mean Corpuscular Hemoglobin Concent 34.5 g/dL (32.0-36.0) Red Cell Distribution Width 13.6 % (11.8-14.3) Platelet Count 197 10^3/uL (140-450) Mean Platelet Volume 8.5 fL (6.9-10.8) Neutrophils (%) (Auto) 64.2 % (37.0-80.0) Lymphocytes (%) (Auto) 29.4 % (10.0-50.0) Monocytes (%) (Auto) 3.2 % (0.0-12.0) Eosinophils (%) (Auto) 2.3 % (0.0-7.0) Basophils (%) (Auto) 0.9 % (0.0-2.0) Neutrophils # (Auto) 2.7 10 ^3/uL (1.6-8.6) Lymphocytes # (Auto) 1.2 10 ^3/uL (0.4-5.4) Monocytes # (Auto) 0.1 10 ^3/uL (0-1.3) Eosinophils # (Auto) 0.1 10 ^3/uL (0-0.8) Basophils # (Auto) 0 10 ^3/uL (0-0.2) Nucleated Red Blood Cells 0.2 % Sodium Level 143 mmol/L (136-145) Potassium Level 4.0 mmol/L (3.5-5.1) Chloride Level 106 mmol/L (98-107) Carbon Dioxide Level 27 mmol/L (20-31) Anion Gap 10 (5-15) Blood Urea Nitrogen 11 mg/dL (9-23) Creatinine 0.80 mg/dL (0.550-1.02) Glomerular Filtration Rate Calc 84 mL/min (>90) BUN/Creatinine Ratio 13.8 (10.0-20.0) Serum Glucose 105 mg/dL (74-106) Calcium Level 9.7 mg/dL (8.7-10.4) Vitamin B12 Level 662 pg/mL (211-911) Folic Acid 40.07 ng/mL (>5.38) Urine Color Yellow (Yellow) Urine Clarity Clear (Clear) Urine pH 5.5 (5.0-9.0) Urine Specific [place] 1.014 (1.001-1.035) Urine Protein Negative (Negative) Urine Ketones Negative (Negative) Urine Blood Negative /uL (Negative) Urine Nitrite Negative (Negative) Urine Bilirubin Negative (Negative) Urine Urobilinogen Normal mg/dL (Negative) Urine Leukocyte Esterase 1+ /uL (Negative) Urine RBC <1 /hpf (0 - 4) Urine Microscopic WBC 2 /HPF (0-5) Urine Squamous Epithelial Cells Few /hpf (<5) Urine Bacteria None seen /hpf (None Seen) Urine Mucus Few (None Seen) Urine Glucose Normal mg/dL (Normal) Differential Total Cells Counted 100.0 (100) Neutrophils % (Manual) 37 (37.0-80.0) Band Neutrophils % (Manual) 0 Lymphocytes % (Manual) 62 (10.0-50.0) Monocytes % (Manual) 0 (0-12) Eosinophils % (Manual) 1 (0-7) Basophils % (Manual) 0 (0.0-2.0) Metamyelocytes % (manual) 0 Myelocytes % (Manual) 0 Promyelocytes % (Manual) 0 Blast Cells % (Manual) 0 Reactive Lymphocytes 0 Platelet Estimate Adequate Total Bilirubin 0.6 mg/dL (0.2-1.0) Aspartate Amino Transferase (AST) 30 U/L (13-40) Alanine Aminotransferase (ALT) 13 U/L (7-40) Alkaline Phosphatase 87 U/L (46-116) Total Protein 7.3 g/dL (5.7-8.2) Albumin 4.6 g/dL (3.2-4.8) Triglycerides Level 62 mg/dL (< 150) Cholesterol Level 169 mg/dL (< 200) LDL Cholesterol 91 mg/dL (< 100) HDL Cholesterol 69 mg/dL (40-59) Urine Opiates Screen Neg (NEGATIVE) Urine Fentanyl Screen Neg (NEGATIVE) Urine Barbiturates Screen Neg (NEGATIVE) Urine Phencyclidine Screen Neg (NEGATIVE) Urine Amphetamines Screen Neg (NEGATIVE) Urine Benzodiazepines Screen Neg (NEGATIVE) Urine Cocaine Screen Neg (NEGATIVE) Urine Cannabinoids Screen Neg (NEGATIVE) Test 06/18/25 11:35 06/18/25 08:22 Troponin I High Sensitivity 5 ng/L (</=34) Magnesium Level 2.1 mg/dL (1.6-2.6) Direct Bilirubin 0.2 mg/dL (<0.3) B-Type Natriuretic Peptide 5.61 pg/mL (0-100) Thyroid Stimulating Hormone (TSH) 1.11 uIU/mL (0.55-4.78) Other Laboratory Tests 06/20/25 09:49 Brief Hx & Hospital Course: This is a 60-year-old female with a history of anemia requiring transfusion- vegan diet who presented to the ER with the daughter for the evaluation of chest pain which started earlier this morning. Patient was up all night waiting for the daughter to come home, she had a disagreement and argument with the daughter this morning following which patient experienced chest pain which was substernal, pressure type, radiated to the back, and right shoulder associated with nausea, chest pain started when she was sitting and lasted till she got nitroglycerin in the ER 3 hours later. Patient denies shortness of breath, fever chills, sweating or dizziness at this time. brief hospital course: Patient was admitted to [facility] from for treatment of acute chest pain for which ACS which was ruled out. and sinus tachycardia likely secondary to anxiety and stress for which troponins were negative, EKG shows tachycardia and left atrial enlargement, no ST elevation, BNP was normal, her chest pain was relieved by nitroglycerin, ASCVD score was 4.1%. echo was done and showed LVEF of 60%, mild LVH, left atrium enlargement. aspirin and atorvastatin were given daily. patient does not need atorvastatin as ASCVD score is less than 7%. for her acute complicated UTI for which urinalysis showed positive signs of UTI IV ceftriaxone was given. patient had suicide ideation for which telepsych as onsulted because she had a past suicide attempt. psychiatrist diagnosed the patient with major depressive disorder, recurrent, moderate to severe, persistent depressive disorder, generalized anxiety disorder, adjustment disorder with depressed mood and anxiety. psychiatrist stated that patient does not meet criteria for involuntary hold (5150) as she is not actively suicidal, not gravely disabled, and does not pose a danger to herself or others. Her presentation is appropriate for voluntary outpatient management with initiation of pharmacologic treatment. Patient reported her shortness of breath after walking, but as per respiratory therapist PT. AMBULATED WITH P.T. FOR ROOM AIR ABG. PT. POX READING 93%-99% ON AMBULATION and PT recommended Front Wheel Walker, Home Health Safety, Home Health PT. Repeat EKG was done and showed no abnormalities. Patient was stable for discharge, and communicated understanding of her discharge plan. She does not report any chest pain and reported feeling better than when she came in and is willing to follow-up with psychiatry and discharge Clinic in 1-2 weeks. General: Patient alert and oriented in person, place and time. Patient following commands. Depressed mood HEENT: Normocephalic, atraumatic, moist mucous membranes Respiratory/pulmonary: Clear lungs bilaterally, vesicular murmurs present in almost all lung landin, no associated crackles or wheezes. Cardiovascular: Mild chest tenderness Abdomen: Abdomen nondistended, there is no pain to palpation in any of the abdominal quadrants, no palpable masses. Extremities: There is no peripheral edema present at the lower extremities. Peripheral Pulses: 3+ Radial (R). 3+ Radial (L). 3+ Dorsalis pedis (R). 3+ Dorsalis pedis(L) Skin: No rashes or pruritus, there is no sacral edema present at this time. Neurological: Intact cranial nerves with no focal neurologic deficits, Discharge instructions: Patient is to take mirtazapine 30 mg for 30 days Patient is to take dash diet, cardiac diet Follow-up with psychiatrist outpatient,and discharge Clinic in 1 week Operations or Procedures ORDERING PHYSICIAN: DARLEEN CHATTERJEE RESIDENT PROCEDURE(s): CXR1 - CHEST XRAY 1 VIEW REASON: chest pain ORDER NUMBER(s): [id number], ACCESSION NUMBER(s): [id number] CHEST RADIOGRAPH Indication: chest pain Technique: Single frontal view of the chest was obtained Comparison: None FINDINGS: Lines and Tubes: None Lungs: No focal consolidation. Pleura: No effusion. No pneumothorax. Cardiomediastinal contours: Unremarkable Bones: No acute osseous abnormality. IMPRESSION: 1. No acute cardiopulmonary disease. HS:Y Condition at Discharge: Stable Final Diagnosis/Problems List #Chest pain, ruled out ACS, possibly due to Anxiety/ Panic disorder #Sinus tachycardia likely secondary to anxiety and stress # acute complicated UTI # acute suicidal ideation Discharge Disposition: Home Discharge Instruct/Medications Diet: Consistent carbohydrate, Cardiac 2g Na,low cholest Activity: No Restrictions, As Tolerated Follow Up/Referral: follow up with discharge clinic in 1 week Follow up with PCP in 1-2 weeks Medications: As per EMR Scheduled Mirtazapine (Remeron), 15 MG OR DAILY Discharge Statement: "Patient was advised to return to the ER or call 911 if any headaches, dizziness, shortness of breath, chest pain, abdominal pain, bleeding, fevers, or worsening of medical condition. Patient was counseled about treatment plan, medications, possible side effects, patientverbalized understanding. All questions were answered to the best of my ability. This discharge took greater then 30 minutes in planning, reviewing documentation, counseling the patient, and discussing with other team members." ASSESSMENT ASSESSMENT Assessment #Chest pain, ruled out ACS. TERE DOLAN RESIDENT Jun 21, 2025 18:42
--- NOTE | 2025-06-22 07:40 | ECG ---
[facility] Test Date: 2025-06-21 Test Time: 14:07:19 Pat Name: BIANCA MCGINNIS Department: Respiratoy Room: 0220T A Gender: F Voip Engineer: RACHID : 1965 Requested By: DARLEEN CHATTERJEE Order Number: [id number] Reading MD: Patrick Correa Measurements Intervals [place] Rate: 87 P: 59 UT: 170 QRS: -28 QRSD: 82 T: 33 QT: 361 QTc: 435 Interpretive Statements Sinus rhythm Borderline left axis deviation Electronically Signed On 06-26-2025 18:37:53 PDT by Patrick Correa Please click the below link to view image of tracing.
== END 2025-06-21 19:58 | disposition home health service (06) | DRG 203 ==
LOC: ER 08:04 → OVERFLOW 11:24 → TELE-CENTR 18:30
PROVIDERS: ADMIT Student in an Organized Health Care Education/Training Program; ATTEND Student in an Organized Health Care Education/Training Program
DX: M94.0 Chondrocostal junction syndrome [Tietze] (principal); R45.851 Suicidal ideations; F33.2 Major depressive disorder, recurrent severe without psychotic features; N39.0 Urinary tract infection, site not specified; R00.0 Tachycardia, unspecified; F41.1 Generalized anxiety disorder; F43.23 Adjustment disorder with mixed anxiety and depressed mood; Z81.8 Family history of other mental and behavioral disorders; Z88.6 Allergy status to analgesic agent; Z91.51 Personal history of suicidal behavior; Z79.82 Long term (current) use of aspirin; Z79.899 Other long term (current) drug therapy
CPT/HCPCS: 36415; 71045; 71250; 80048; 80053; 80061; 80076; 80307; 81001; 82607; 82746; 83735; 83880; 84443; 84484; 85007; 85025; 85027; 87086; 87088; 87186; 93005; 93306; 97110; 97116; 97163; G0378

== ENCOUNTER 2025-06-27 11:53 | Outpatient (CLI) | payer MEDICAID ==
[~2025-06-27 11:53] MED LIST: MIRT-94 OR
== END 2025-06-27 17:00 | disposition home or self-care (01) ==
LOC: LAB 11:53
PROVIDERS: ATTEND Internal Medicine
DX: I82.503 Chronic embolism and thrombosis of unspecified deep veins of lower extremity, bilateral (principal); R06.02 Shortness of breath; M79.669 Pain in unspecified lower leg
CPT/HCPCS: 36415; 82550; 85379